=== PATIENT | female | born 1990 | race Caucasian/White ===

== ENCOUNTER 2016-07-04 09:46 | Emergency (ER) | payer OTHER ==
[~2016-07-04] VITALS: Ht 162.6 cm; Wt 73.2 kg
[2016-07-04] MEDS ORDERED: PRENATAL TABLE1 EAC3 PO (10:21)
[2016-07-04 10:56] LABS: ADD MIUA? YES; BILIRUBIN NEGATIVE; BLOOD TRACE; COLOR YELLOW ((YELLOW)); GLUCOSE (STRIP) NEGATIVE; KETONES >=80; LEUKOCYTES NEGATIVE; NITRITE NEGATIVE; PROTEIN (STRIP) TRACE; UROBILINOGEN 0.2 MG/DL (0.2-1.0)
[2016-07-04 11:19] LABS: HEMATOCRIT 38.8 % (36.0-46.0); MCH 30.2 PG (29.0-34.0); MCHC 35.3 G/DL (30.0-36.0); MCV 85.5 FL (83-99); MEAN PLAT.VOLUME 9.3 uM^3 (9.5-12.4); PLATELET COUNT 202 K/uL (156-360); RBC DIS.WIDTH-CV 12.3 % (11.8-14.6); RBC DIS.WIDTH-SD 37.6 % (39-53); RED BLOOD COUNT 4.54 M/uL (3.80-5.20); WHITE BLOOD COUNT 5.7 K/uL (4.1-10.2)
[2016-07-04 11:26] LABS: CHLORIDE 108 mEq/L (99-109); POTASSIUM 4.3 mEq/L (3.7-5.4); SODIUM 138 mEq/L (136-147)
[2016-07-04 11:28] LABS: GLUCOSE 89 mg/dL (70-99)
[2016-07-04 11:29] LABS: ANION GAP 12 MEQ/L (2-14)
[2016-07-04 11:32] LABS: GFR ESTIMATE (CALCULATED) > 59 mL/min/
[2016-07-04 11:33] LABS: UREA NITROGEN (BUN) 10 mg/dL (9-23)
[2016-07-04 11:38] LABS: BACTERIA 1+; EPITHELIAL CELLS NONE SEEN; MUCUS 3+; RED BLOOD CELLS RARE /HPF (0-5); WHITE BLOOD CELLS RARE /HPF (0-5)
[2016-07-04 11:39] LABS: CASTS NONE SEEN /LPF; CRYSTALS NONE SEEN
[2016-07-04 11:40] LABS: QUANTITATIVE HCG 627.1 MIU/ML
[2016-07-04 13:38] VITALS: BP 110/68
== END 2016-07-04 13:39 | disposition home or self-care (01) ==
LOC: EME 09:46
PROVIDERS: Nurse Practitioner Family
DX: Z34.81 Encounter for supervision of other normal pregnancy, first trimester (principal); O34.81 Maternal care for other abnormalities of pelvic organs, first trimester; N83.202 Unspecified ovarian cyst, left side; Z3A.00 Weeks of gestation of pregnancy not specified
CPT/HCPCS: 76801; 80048; 81003; 84702; 85027; 86850; 86900; 86901; 99281; 99284